=== PATIENT | female | born 1980 ===

== ENCOUNTER 2022-10-12 07:46 | Day surgery (SDC) | payer OTHER ==
[2022-10-12] MEDS ORDERED: NAPR500T14 PO (15:30)
[2022-10-12] MEDS ORDERED: MORGIDOX100 MG PO (15:30)
== END 2022-10-12 19:15 | disposition home or self-care (01) ==
LOC: CIR.AMB 07:46
PROVIDERS: ATTEND Obstetrics & Gynecology
DX: N84.0 Polyp of corpus uteri (principal); N72 Inflammatory disease of cervix uteri; N93.8 Other specified abnormal uterine and vaginal bleeding; D25.0 Submucous leiomyoma of uterus; N92.4 Excessive bleeding in the premenopausal period; N91.1 Secondary amenorrhea; R10.2 Pelvic and perineal pain; Z20.822 Contact with and (suspected) exposure to COVID-19